=== PATIENT | male | born 1990 | race African-American/Black ===

== ENCOUNTER 2017-04-28 17:34 | Emergency (ER) | payer OTHER ==
[~2017-04-28] VITALS: Ht 170.2 cm; Wt 59.0 kg
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
[~2017-04-28 17:34] MED LIST: AMLODIPINE BESYL5 MG PO; CLONIDINE TOP; CONCERTA PO; DDAVP0.2 M1 PO; DEPAKOTE PO; GROWTH HORMONE IM; LISINOPRIL; NASONEX17 GM; RITALIN; SYMBICORT INH; TOBREX5 ML OP; VESICARE PO; VOLTAREN75 MG PO
== END 2017-04-28 21:50 | disposition home or self-care (01) ==
LOC: CED 17:34
DX: S00.83XA Contusion of other part of head, initial encounter (principal); Y04.0XXA Assault by unarmed brawl or fight, initial encounter; Y92.410 Unspecified street and highway as the place of occurrence of the external cause
CPT/HCPCS: 70450; 70486; 72040; 99284